=== PATIENT | female | born 2005 | race African-American/Black ===

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

== ENCOUNTER 2023-05-19 00:06 | Emergency (ER) | payer SELFPAY ==
[2023-05-19] MEDS ORDERED: Acetaminophen 325 MG TAB ONE (00:25)
== END 2023-05-19 01:27 | disposition home or self-care (01) ==
LOC: NAV ERS 00:06
DX: J10.1 Influenza due to other identified influenza virus with other respiratory manifestations (principal)
CPT/HCPCS: 87081; 87430; 87804; 99283

== ENCOUNTER 2023-06-19 10:35 | Emergency (ER) | payer SELFPAY ==
[2023-06-19 11:29] LABS: Bilirubin Negative (Negative); Blood, Urine Large (Negative); Clarity Clear (Clear); Glucose, Urine (Dipstick) Negative (Negative); Ketone, Urine Negative (Negative); Leukocyte Negative (Negative); Nitrite Negative (Negative); Protein, Urine (Dipstick) Negative (Neg-Trace); Specific Gravity, Urine 1.015 (1.005-1.030); Urobilinogen 0.2 mg/dL (Less than 2)
[2023-06-19 11:32] LABS: Pregnancy Test - Urine (BHCG) POSITIVE (Negative); Pregu Control Background? CLEAR/WHITE (CLR/WHITE); Pregu Control Bar Appear? YES (CONTROL BAR); Specific Gravity 1.015 (1.002-1.036)
[2023-06-19 11:48] LABS: Bacteria/HPF Rare-Few HPF (None Seen); CAUTI Indications for Culture Pelvic or flank pain; Squamous Epithelial 0-3 HPF (0-3); WBC/HPF 0-3 HPF (0-3)
[2023-06-19 11:50] LABS: Urine Culture Reflex No No
== END 2023-06-19 11:45 | disposition home or self-care (01) ==
LOC: NAV ERS 10:35
DX: O20.9 Hemorrhage in early pregnancy, unspecified (principal); Z3A.01 Less than 8 weeks gestation of pregnancy
CPT/HCPCS: 81001; 81025; 99284

== ENCOUNTER 2023-12-01 14:53 | Emergency (ER) | payer MEDICAID, SELFPAY ==
[2023-12-01 15:39] LABS: #Basophils 0.1 thou/uL (0.0-0.2); #Lymphocytes 1.8 thou/uL (1.20-3.40); #Monocytes 0.4 thou/uL (0.11-0.59); #Neutrophils 2.7 thou/uL (1.40-6.50); %Basophils 1.1 % (0.0-1.0); %Eosinophils 0.2 % (0.0-10.0); %Lymphocytes 35.9 % (28.0-48.0); %Monocytes 7.5 % (0.0-4.0); %Neutrophils 55.3 % (31.0-61.0); Hematocrit 36.2 % (36.0-47.0); Hemoglobin 11.6 g/dL (12.0-16.0); Mean Corpuscular HGB CONC 32.1 g/dL (32.0-36.0); Mean Corpuscular Hemoglobin 28.3 pg (25.0-35.0); Mean Corpuscular Volume 88.1 fl (78.0-98.0); Mean Platelet Volume 7.5 fL (7.4-10.4); Platelet Count 213 10x3/uL (130-400); Red Blood Cell (RBC) Count 4.12 mill/uL (4.00-5.20); White Blood Cell (WBC) Count 4.9 10x3/uL (4.8-10.8)
== END 2023-12-01 17:21 | disposition home or self-care (01) ==
LOC: NAV ERS 14:53
DX: O20.0 Threatened abortion (principal); Z3A.08 8 weeks gestation of pregnancy
CPT/HCPCS: 36415; 84702; 85025; 86900; 86901; 99284

== ENCOUNTER 2023-12-04 09:12 | Emergency (ER) | payer MEDICAID ==
[2023-12-04 10:18] LABS: #Basophils 0.1 thou/uL (0.0-0.2); #Lymphocytes 1.4 thou/uL (1.20-3.40); #Monocytes 0.3 thou/uL (0.11-0.59); #Neutrophils 3.7 thou/uL (1.40-6.50); %Basophils 1.6 % (0.0-1.0); %Eosinophils 0.5 % (0.0-10.0); %Lymphocytes 24.7 % (28.0-48.0); %Monocytes 5.8 % (0.0-4.0); %Neutrophils 67.5 % (31.0-61.0); Hematocrit 36.3 % (36.0-47.0); Hemoglobin 11.5 g/dL (12.0-16.0); Mean Corpuscular HGB CONC 31.5 g/dL (32.0-36.0); Mean Corpuscular Volume 88.7 fl (78.0-98.0); Mean Platelet Volume 7.5 fL (7.4-10.4); Platelet Count 195 10x3/uL (130-400); RBC Distribution Width 11.1 % (11.5-14.5); Red Blood Cell (RBC) Count 4.09 mill/uL (4.00-5.20); White Blood Cell (WBC) Count 5.5 10x3/uL (4.8-10.8)
== END 2023-12-04 10:33 | disposition short-term general hospital (02) ==
LOC: NAV ERS 09:12
DX: O20.0 Threatened abortion (principal); Z3A.01 Less than 8 weeks gestation of pregnancy
CPT/HCPCS: 84702; 85025; 99284